=== PATIENT | female | born 1940 | race Caucasian/White ===

== ENCOUNTER 2017-05-16 18:24 | Emergency (ER) | payer OTHER ==
[2017-05-16 18:35] VITALS: BP 125/70
[2017-05-16] MEDS ORDERED: TETANUS/DIPHTHERIA TOX-ADULT 0.5 ML SYR (>=7YO) IM ONE (19:03)
[2017-05-16] MEDS ORDERED: LIDOCAINE 1%/EPINEPHRINE INJ 20 ML VIAL INJ ONE (19:10)
--- NOTE | 2017-05-16 19:11 | ER Document Report ---
ED Wound - General Chief Complaint: Laceration Stated Complaint: FOOT LACERATION Time Seen by Provider: 05/16/17 19:05 Notes: Patient is a 77-year-old female that comes by EMS for chief complaint of laceration to the top of her left foot. She states a light fixture broke and a piece of glass landed on her foot, causing a laceration. She states she did take a big piece of glass off of her foot, she already explored her foot and states there were no additional pieces of glass around or in the wound. She is not on a blood thinner. She does not have diabetes. Her tetanus is not up-to- date. She denies any other injuries or complaints. Sister at bedside. - Related Data Allergies/Adverse Reactions: Sulfa (Sulfonamide Antibiotics) Allergy (Verified 05/16/17 18:37) Past Medical History - General Information source: Patient - Social History Smoking Status: Never Smoker Frequency of alcohol use: None Drug Abuse: None Lives with: Family Family History: Reviewed & Not Pertinent - Immunizations Immunizations up to date: No Hx Diphtheria, Pertussis, Tetanus Vaccination: Yes Review of Systems - Review of Systems Constitutional: No symptoms reported EENT: No symptoms reported Cardiovascular: No symptoms reported Respiratory: No symptoms reported Gastrointestinal: No symptoms reported Genitourinary: No symptoms reported Female Genitourinary: No symptoms reported Musculoskeletal: See HPI Skin: See HPI Hematologic/Lymphatic: No symptoms reported Neurological/Psychological: No symptoms reported Physical Exam - Vital signs Vitals: Temp Pulse Resp BP Pulse Ox 99.0 F 90 16 125/70 95 05/16/17 18:31 05/16/17 18:31 05/16/17 18:31 05/16/17 18:31 05/16/17 18:31 Interpretation: Normal - General General appearance: Appears well, Alert In distress: None - HEENT Head: Normocephalic, Atraumatic Eyes: Normal Pupils: PERRL - Respiratory Respiratory status: No respiratory distress Chest status: Nontender Breath sounds: Normal Chest palpation: Normal - Cardiovascular Rhythm: Regular Heart sounds: Normal auscultation Murmur: No - Abdominal Inspection: Normal Distension: No distension Bowel sounds: Normal Tenderness: Nontender Organomegaly: No organomegaly - Back Back: Normal, Nontender - Extremities General upper extremity: Normal inspection, Nontender, Normal color, Normal ROM , Normal temperature General lower extremity: Other - Dorsum of the left foot with a 3 cm irregular laceration, partial-thickness, laceration is just proximal to the second, third , and fourth toes. Normal range of motion of the foot, normal capillary refill and sensation. - Neurological Neuro grossly intact: Yes Cognition: Normal Orientation: AAOx4 Es Coma Scale Eye Opening: Spontaneous Es Coma Scale Verbal: Oriented [place] Coma Scale Motor: Obeys Commands [place] Coma Scale Total: 15 Speech: Normal Motor strength normal: LUE, RUE, LLE, RLE Sensory: Normal - Psychological Associated symptoms: Normal affect, Normal mood - Skin Skin Temperature: Warm Skin Moisture: Dry Skin Color: Normal Course - Vital Signs Vital signs: Temp Pulse Resp BP Pulse Ox 99.0 F 90 16 125/70 95 05/16/17 18:31 05/16/17 18:31 05/16/17 18:31 05/16/17 18:31 05/16/17 18:31 Procedures - Laceration/Wound Repair Left dorsal foot Wound length (cm): 3 Wound's Depth, Shape: Irregular Laceration pre-procedure: Sterile PPE donned, Sterile drapes applied, Shur- Clens applied Anesthetic type: 1% Lidocaine w/epi Volume Anesthetic (mLs): 4 Wound explored: Clean, No foreign body removed Irrigated w/ Saline (mLs): 60 Wound Repaired With: Sutures Suture Size/Type: 4:0, Nylon Number of Sutures: 6 Layer Closure?: No Post-procedure wound care: Sterile dressing applied Post-procedure NV exam normal: Yes Complications: No Notes: Wound explored carefully, no evidence of foreign body, irrigated thoroughly, obtain a bloodless field using lidocaine with epinephrine, examined carefully, no evidence of deep injury or injury to the tendons. Wound repaired without any complications. Discharge - Discharge Clinical Impression: Foot laceration Qualifiers: Encounter type: initial encounter Laterality: left Qualified Code(s): S91.312A - Laceration without foreign body, left foot, initial encounter Condition: Stable Disposition: HOME, SELF-CARE Instructions: Tetanus Immunization Given (OM) Additional Instructions: The sutures need to come out in about 7 days. Keep wound clean, clean gently with soap and water, apply thin film of topical antibiotic to the area, avoid soaking. Return for any concerning symptoms including signs of infection such as redness , swelling, discolored drainage, fever, or any other concerning symptoms.
[2017-05-16] MEDS ORDERED: DIPH/PERTUSS(ACELL)/TETANUS VAC/PF 0.5 ML SYR (>=10YO) IM ONE (20:55)
== END 2017-05-16 21:23 | disposition home or self-care (01) ==
LOC: ER 18:24
PROC: 0HQNXZZ Repair Left Foot Skin, External Approach (ICD-10-PCS; principal; 2017-05-16)
DX: S91.312A Laceration without foreign body, left foot, initial encounter (principal); W25.XXXA Contact with sharp glass, initial encounter; Z88.2 Allergy status to sulfonamides; Z23 Encounter for immunization
CPT/HCPCS: 99283; 90471; 90715; 12002; J3490

== ENCOUNTER → 2017-05-30 | Outpatient (CLI) | payer OTHER ==
--- NOTE | 2017-05-30 15:06 | RADIOLOGY REPORT (SQ) ---
EXAM DESCRIPTION: FOREARM RIGHT COMPLETED DATE/TIME: 05/30/2017 2:44 pm REASON FOR STUDY: RIGHT FOREARM PAIN (M79.631) COMPARISON: None. NUMBER OF VIEWS: Two views of the right forearm. LIMITATIONS: None. FINDINGS: Mild osteopenia. Aggressive bone lesion or 2 adjacent lesions in the distal ulna shaft wi th lateral cortical loss, ill-defined margins and adjacent mild periosteal new bone formation. More proximally, roughly ovoid potential 2nd medullary lytic lesion, proximal 3rd of the ulna. No evidenc e of fracture. Degenerative thumb base carpal changes. OTHER: No other significant finding. IMPRESSION: Suspicious bone lesions in the right ulna. In a patient of this age, leading considerat ions include metastatic disease and myeloma. TECHNICAL DOCUMENTATION: JOB ID: [id number]
== END ==
LOC: RAD 14:26
PROVIDERS: ATTEND Physician Assistant
DX: M79.631 Pain in right forearm (principal); M89.9 Disorder of bone, unspecified

== ENCOUNTER → 2017-06-07 | Outpatient (CLI) | payer OTHER ==
--- NOTE | 2017-06-07 16:51 | RADIOLOGY REPORT (SQ) ---
EXAM DESCRIPTION: CT CHEST WITH; CT ABD/PELVIS WITH IV ORAL COMPLETED DATE/TIME: 06/07/2017 4:25 pm REASON FOR STUDY: LYTIC LESION/DISORDER OF BONE M89.9 DISORDER OF BONE, UNSPECIFIED CONTRAST TYPE AND DOSE: contrast/concentration: Isovue 370.00 mg/ml; Total Contrast Delivered: 81.0 ml; Total Saline Delivered: 68.0 ml RENAL FUNCTION: Not available. COMPARISON: Radiographs of the right forearm 05/30/2017. TECHNIQUE: CT scan of the chest performed using helical scanning technique with dynamic intravenous contrast injection. Images reviewed with lung, soft tissue and bone windows. Reconstructed coronal a nd sagittal MPR images reviewed. All images stored on PACS. All CT scanners at this facility use dose modulation, iterative reconstruction, and/or weight based d osing when appropriate to reduce radiation dose to as low as reasonably achievable (ALARA). [facility]: Dose Right [facility]: CareDose [facility]: Dose Right [facility]: Teradose 4D [facility]: [employer] RADIATION DOSE: Up-to-date CT equipment and radiation dose reduction techniques were employed. CTDIv ol: 5.4 - 10.3 mGy. DLP: 1278 mGy-cm.. LIMITATIONS: None. FINDINGS: AXILLAE: No adenopathy. CHEST WALL: No masses. No subcutaneous air. LUNGS: Mild bullous changes. Areas of scarring in the lower lobes. Relatively low density mass in t he right lower lobe medially. This measures 2 x 2.4 cm. PLEURA: No effusions. No calcifications. THYROID: Absent. HILAR AND MEDIASTINAL STRUCTURES: Adenopathy is present. Enlarged periaortic, subcarinal and right h ilar nodes. Largest mediastinal node measures up to 1.7 cm in short axis. Hilar nodes measure up to almost 2 cm short axis. The stomach is almost entirely intrathoracic, organo-axial volvulus. AORTA AND GREAT VESSELS: No aneurysm. No dissection. PULMONARY ARTERIES: No identified pulmonary emboli. Study not optimized for the pulmonary arteries. HEART: No pericardial effusion. HARDWARE AND LIFELINES: None. BONES: No significant finding. OTHER: No other significant finding. IMPRESSION: 1. Right lower lobe mass measuring just over 2 cm maximally. Adjacent hilar adenopathy on the right. Additional enlarged nodes in the mediastinum. COMPARISON: None. RADIATION DOSE: Up-to-date CT equipment and radiation dose reduction techniques were employed. CTDIv ol: 5.4 - 10.3 mGy. DLP: 1278 mGy-cm.mGy. TECHNIQUE: CT scan of the abdomen and pelvis performed with intravenous and oral contrast using jessica sarahy scanning technique with dynamic intravenous contrast injection. Images reviewed with lung, soft tissue and bone windows. Reconstructed coronal and sagittal MPR images reviewed. Delayed images for evaluation of the urinary system also acquired and evaluated. All images stored on PACS. All CT scanners at this facility use dose modulation, iterative reconstruction, and/or weight based d osing when appropriate to reduce radiation dose to as low as reasonably achievable (ALARA). [facility]: Dose Right [facility]: [employer] [facility]: Dose Right [facility]: Teradose 4D [facility]: [employer] FINDINGS: LIVER: In the posterior liver dome, there is a roughly 3 cm faint hyperenhancing lesion. Not further characterized today. Liver otherwise unremarkable. SPLEEN: Normal size. No focal lesions. PANCREAS: No masses. No significant calcifications. No adjacent inflammation or peripancreatic flui d collections. Pancreatic duct not dilated. GALLBLADDER: No identified stones by CT criteria. No inflammatory changes to suggest cholecystitis. ADRENAL GLANDS: No significant masses or asymmetry. RIGHT KIDNEY AND URETER: No mass. 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 No obstructive changes are identified. No definite stones. LEFT KIDNEY AND URETER: Lateral midpole cyst measures just under 3 cm. No evidence of obstruction or stones. 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 AORTA AND VESSELS: Heavy atherosclerotic calcification without aneurysm or dissection. Patent major arterial branches. No venous clot detected. RETROPERITONEUM: No adenopathy. Please see bowel findings below. LARGE AND SMALL BOWEL: Extensive descending and sigmoid diverticulosis. Large amount of stool in the proximal 2/3 of the colon. No evidence of mechanical small bowel obstruction. In the right lower q uadrant, iliac fossa and pericolic gutter, there is a large circumscribed area of fat with strandy de nsity/inflammatory changes. This measures up to 8 cm maximal AP dimension, 10 cm craniocaudal. Susp ect this is related to an area of fat necrosis or epiploic appendagitis. This lies below the level o f the cecum. Fatty malignancy is felt to be less likely, although there is some nodular soft tissue in the midst of the fat with peripheral thickening. APPENDIX: Normal. ABDOMINAL WALL: No hernia or masses. PERITONEAL CAVITY: No ascites or abnormal gas or overt mesenteric adenopathy. PELVIS: No mass or free fluid. Normal bladder. BONES: Lytic lesions in the left ilium with irregular cortical loss. OTHER: No other significant finding. IMPRESSION: 1. Solitary liver lesion, potentially simply a hemangioma. Further evaluation with ded icated liver MRI may prove helpful. 2. Fatty mass with suggestion of inflammatory changes in the ri ght lower quadrant. Differential includes fat necrosis, epiploic appendagitis predominantly. Less l ikely liposarcoma. 3. Lytic lesions in the left ilium consistent with osseous metastatic disease. TECHNICAL DOCUMENTATION: JOB ID: [id number] Quality ID # [id number]: Final reports with documentation of one or more dose reduction techniques (e.g., Au tomated exposure control, adjustment of the mA and/or kV according to patient size, use of iterative reconstruction technique) 2010 [employer]- All Rights Reserved
== END ==
LOC: RAD 13:12
PROVIDERS: ATTEND Physician Assistant
DX: M89.9 Disorder of bone, unspecified (principal)
CPT/HCPCS: 71260; 74177